=== PATIENT | male | born 1995 | race Native Hawaiian/Other Pacific Islander ===

== ENCOUNTER 2018-06-12 21:23 | Emergency (ER) | payer OTHER ==
[2018-06-12 22:10] VITALS: O2SAT 99
--- NOTE | 2018-06-12 22:21 | ED PDOC ---
HPI: Influenza Time Seen by Provider: 06/12/18 21:29 Chief Complaint: Flu-like Symptoms Chief Complaint (Provider): Body pain, feeling hot History Per: Patient Exam Limitations: no limitations Have you had recent travel within the past 21 days to any of: No Symptoms include: fever, headache, bodyaches. denies: sore throat, cough, nasal congestion, vomiting, diarrhea, syncope, chest pain, difficulty breathing, seizure, rash, blurry vision Sick Contacts (Context): None Hx Influenza Vaccination: No Risk factors for flu complications: No: adult > 65 years, child < 5 years, child < 2 years, , chronic lung disease, endocrine disorders, heart disease, renal disease, metabolic disease, hematologic disease, immunosuppression, obesity (BMI > 40), [facility] resident, <19 years of age on middle or intermediate school principal ASA therapy, neurologic disease, or Additional complaint(s):: Pt reports severe body pain, fever and headache which began suddenly last night. Pt states he took a medication which is from him [place] country but it not sure what. Pt states it did not help symptoms/ Past Medical History Reviewed: Historical Data, Nursing Documentation, Vital Signs Vital Signs: Last Vital Signs Temp 102.1 F H 06/12/18 22:05 Pulse 113 H 06/12/18 22:05 Resp 18 06/12/18 22:05 BP 113/80 06/12/18 22:05 Pulse Ox 99 06/12/18 22:05 - Medical History PMH: No Chronic Diseases - Surgical History Surgical History: No Surg Hx - Family History Family History: States: No Known Family Hx - Living Arrangements Living Arrangements: With Family - Social History Current smoker - smoking cessation education provided: No - Home Medications Home Medications: Ambulatory Orders Medication Instructions Recorded Acetaminophen [Pain Relief 8Hr] 650 mg PO Q8H PRN #20 tablet.er 06/12/18 Ibuprofen [Motrin Tab] 800 mg PO Q6H PRN #20 tab 06/12/18 Oseltamivir Cap [Tamiflu] 75 mg PO BID #10 cap 06/12/18 - Allergies Allergies/Adverse Reactions: Allergies Allergy/AdvReac Type Severity Reaction Status Date / Time No Known Allergies Allergy Verified 06/12/18 22:10 Physical Exam - Reviewed Nursing Documentation Reviewed: Yes Vital Signs Reviewed: Yes - Physical Exam Appears: Positive for: Well, Non-toxic, No Acute Distress Head Exam: Positive for: ATRAUMATIC, NORMAL INSPECTION, NORMOCEPHALIC Skin: Positive for: Normal Color, Warm, DRY Eye Exam: Positive for: Normal appearance ENT: Positive for: Normal ENT Inspection Neck: Positive for: Normal, Painless ROM Cardiovascular/Chest: Positive for: Regular Rate, Rhythm Respiratory: Positive for: CNT, Normal Breath Sounds Back: Positive for: Normal Inspection Extremity: Positive for: Normal ROM Neurologic/Psych: Positive for: Alert, Oriented Medical Decision Making Medical Decision Making: Pt states he took an unknown medication 4 hours [employer]. Remy given tylenol PO in ER. PT was able to find medication he took at home: Does not contain NSAID or tylenol. 1130 - Temp 99.2, HR 89 Pt reports feeling much better on re-evaluation. - ECG O2 Sat by Pulse Oximetry: 99 Disposition - Clinical Impression Clinical Impression: Influenza - Disposition Disposition: Routine/Home Disposition Time: 22:20 Condition: GOOD Prescriptions: Acetaminophen [Pain Relief 8Hr] 650 mg PO Q8H PRN #20 tablet.er PRN Reason: Fever >100.4 F Ibuprofen [Motrin Tab] 800 mg PO Q6H PRN #20 tab PRN Reason: Pain Oseltamivir Cap [Tamiflu] 75 mg PO BID #10 cap Instructions: Flu, Adult (DC) Forms: [employer] (Algerian)
[2018-06-12 23:45] VITALS: BP 123/76; PULSE 89; RESP 15; TEMP 99.2
== END 2018-06-12 23:45 | disposition home or self-care (01) ==
LOC: H.ER 21:23
DX: J11.1 Influenza due to unidentified influenza virus with other respiratory manifestations (principal)